=== PATIENT | female | born 1970 | race Hispanic/Latino ===

== ENCOUNTER 2023-10-07 21:20 | Emergency (ER) | payer SELFPAY ==
[2023-10-07] MEDS ORDERED: CEPHALEXIN 250 MG CAP ONE (22:06)
[2023-10-07] MEDS ORDERED: TDAP (DIPHTH,PERTUSS(ACELL),TET VAC) 0.5 ML VIAL IMVAC ONE (22:07)
--- NOTE | 2023-10-07 22:13 | ER ---
Nurse's Notes [facility] Name: Radha Flowers Age: 53 yrs Sex: Female : 1970 Arrival Date: 10/07/2023 Time: 21:20 Bed 14 Private MD: Diagnosis: Foot Laceration/ Open wound of foot Presentation: 10/06 21:31 Chief complaint: Patient states: Pt lacerated right 4th toe while walking on wooden tl4 porch approx 30 min ago. Bleeding controlled. Coronavirus screen: At this time, the client does not indicate any symptoms associated with coronavirus-19. Ebola Screen: No symptoms or risks identified at this time. Initial Sepsis Screen: Does the patient meet any 2 criteria? No. Patient's initial sepsis screen is negative. Does the patient have a suspected source of infection? No. Patient's initial sepsis screen is negative. Risk Assessment: Do you want to hurt yourself or someone else? Patient reports no desire to harm self or others. Onset of symptoms was October 07, 2023 at 21:00. 21:31 Method Of Arrival: Ambulatory tl4 21:31 Acuity: JEANNIE 4 tl4 Triage Assessment: 21:34 General: Appears in no apparent distress. Behavior is calm, cooperative. Pain: Denies tl4 pain. EENT: No signs and/or symptoms were reported regarding the EENT system. Neuro: Level of Consciousness is awake, alert, obeys commands, Oriented to person, place, time, situation, Moves all extremities. Full function Gait is steady. Cardiovascular: Capillary refill < 3 seconds Patient's skin is warm and dry. Respiratory: Airway is patent Respiratory effort is even, unlabored, Respiratory pattern is regular, symmetrical. GI: No signs and/or symptoms were reported involving the gastrointestinal system. : No signs and/or symptoms were reported regarding the genitourinary system. Derm: Wound noted right foot Wound is laceration. Musculoskeletal: No signs and/or symptoms reported regarding the musculoskeletal system. Injury Description: Laceration sustained to right foot was sustained 30-60 minutes ago. BURR BENCH HAND: 22:24 unknown al5 Historical: - Allergies: 21:33 No Known Allergies; tl4 - Home Meds: 21:33 None [Active]; tl4 - PMHx: 21:33 Diabetes mellitus; tl4 - PSHx: 21:33 section; tl4 - Immunization history:: Last tetanus immunization: not immunized. - Infectious Disease History:: Denies. - Social history:: Smoking status: Patient denies any tobacco usage or history of. Screenin:23 [facility] ED Fall Risk Assessment (Adult) History of falling in the last 3 months, al5 including since admission Yes- single mechanical fall (1 pt) Confusion or Disorientation No (0 pts) Intoxicated or Sedated No (0 pts) Impaired Gait No (0 pts) Mobility Assist Device Used No (0 pt) Altered Elimination No (0 pt) Score/Fall Risk Level 0 - 2 = Low Risk Oriented to surroundings, Maintained a safe environment, Hourly rounding (assess needs \T\ fall precautionary measures) done. Abuse screen: Denies threats or abuse. Denies injuries from another. Nutritional screening: No deficits noted. Tuberculosis screening: No symptoms or risk factors identified. Assessment: 22:24 Reassessment: Patient appears in no apparent distress at this time. No changes from al5 previously documented assessment. Patient and/or family updated on plan of care and expected duration. Pain level reassessed. Patient is alert, oriented x 3, equal unlabored respirations, skin warm/dry/pink. Vital Signs: 21:31 BP 169 / 79; Pulse 99; Resp 18; Temp 97.5(TE); Pulse Ox 98% on R/A; Weight 52.16 kg; tl4 Height 4 ft. 9 in. ; Pain 0/10; 21:31 Body Mass Index 24.89 (52.16 kg, 144.78 cm) tl4 21:31 Pain Scale: Adult tl4 ED Course: 21:24 Patient arrived in ED. ec2 21:24 Wei Espinal MD is Attending Physician. ec2 21:33 Triage completed. tl4 21:35 Arm band placed on left wrist. tl4 21:51 Cari Ulrich, LUIZA is Primary Nurse. al5 22:11 Foot Right 3 View XRAY In Process Unspecified. EDMS 22:23 Patient has correct armband on for positive identification. Bed in low position. Call al5 light in reach. Side rails up X 1. Provided Education on: wound care. 22:23 No provider procedures requiring assistance completed. Patient did not have IV access al5 during this emergency room visit. 22:38 Dressings: Kerlix X 1; right foot non-adherent dressing x 1 plantar aspect of right sa1 fourth toe. Wound care: to laceration was cleaned with with NS and Triple antibiotic ointment. Administered Medications: 22:19 Drug: Boostrix Tdap IM 0.5 ml IM once; as a single dose Route: IM; Site: right deltoid; al5 22:26 Follow up: Response: (VIS) Vaccine information sheet provided today. Questions and/or al5 concerns addressed. VIS edition date: Oct 03, 2020.; No adverse reaction 22:19 Drug: Cephalexin PO 500 mg PO once Route: PO; al5 22:26 Follow up: Response: No adverse reaction al5 Medication: 22:24 Vaccine Information Statement (VIS) provided today. Questions and/or concerns al5 addressed. VIS edition date: October 03, 2020. Outcome: 22:13 Discharge ordered by . ec2 22:27 Discharged to home ambulatory, with family, al5 22:27 Condition: good 22:27 Discharge instructions given to patient, family, Instructed on discharge instructions, follow up and referral plans. medication usage, Demonstrated understanding of instructions, follow-up care, medications, Prescriptions given X 1, 22:29 Patient left the ED. al5 Signatures: Dispatcher [employer] EDMS Wei Espinal MD MD ec2 Greg Colindres RN RN tl4 Cari Ulrich RN RN al5 [facility]
--- NOTE | 2023-10-07 22:13 | EDPHYS ---
Physician Documentation [facility] Name: Radha Flowers Age: 53 yrs Sex: Female : 1970 Arrival Date: 10/07/2023 Time: 21:20 Bed 14 Private MD: ED Physician Wei Espinal HPI: 10/06 21:39 This 53 yrs old Female presents to ER via Ambulatory with complaints of ec2 Laceration To Foot. 21:39 Patient arrives today after injuring herself while walking barefoot. States that she ec2 injured her fourth and fifth toes on the right foot. Unsure of tetanus status, sustained some bleeding which is now controlled.. BAR ASSISTANT: 22:24 unknown al5 Historical: - Allergies: 21:33 No Known Allergies; tl4 - Home Meds: 21:33 None [Active]; tl4 - PMHx: 21:33 Diabetes mellitus; tl4 - PSHx: 21:33 section; tl4 - Immunization history:: Last tetanus immunization: not immunized. - Infectious Disease History:: Denies. - Social history:: Smoking status: Patient denies any tobacco usage or history of. ROS: 21:39 Constitutional: as per hpi ec2 Exam: 21:39 Constitutional: GEN: NAD Head: atraumatic Eyes: EOMI Ears: External ears are ec2 normal. CV: regular rate LUNGS: no respiratory distress ABD: non-distended SKIN: Controlled bleeding between the fourth and fifth digit spaces of the right foot. No active bleeding MSK: no evidence of trauma NEURO: moves all extremities equally Vital Signs: 21:31 BP 169 / 79; Pulse 99; Resp 18; Temp 97.5(TE); Pulse Ox 98% on R/A; Weight 52.16 kg; tl4 Height 4 ft. 9 in. ; Pain 0/10; 21:31 Body Mass Index 24.89 (52.16 kg, 144.78 cm) tl4 21:31 Pain Scale: Adult tl4 MDM: 21:35 Patient medically screened. ec2 21:39 Data reviewed: vital signs. ED course: Patient arrives today for evaluation of a foot ec2 wound. Examination markable well-appearing nontoxic individual otherwise in no acute distress will obtain radiograph to evaluate for retained foreign body, will clean the wound. Patient with history of diabetes, will also empirically treat with Keflex given poor wound healing.. 22:12 ED course: Foot x-ray independently reviewed and interpreted by me, shows no bony ec2 fracture. Will discharge home, empirically started antibiotics given her history of diabetes and poor wound healing. Return precautions given.. 08 21:38 Order name: Foot Right 3 View XRAY ec2 10/06 21:38 Order name: Wound Care; Complete Time: 22:26 ec2 Administered Medications: 22:19 Drug: Boostrix Tdap IM 0.5 ml IM once; as a single dose Route: IM; Site: right deltoid; al5 22:26 Follow up: Response: (VIS) Vaccine information sheet provided today. Questions and/or al5 concerns addressed. VIS edition date: Oct 03, 2020.; No adverse reaction 22:19 Drug: Cephalexin PO 500 mg PO once Route: PO; al5 22:26 Follow up: Response: No adverse reaction al5 Disposition Summary: 10/07/23 22:13 Discharge Ordered Notes: Location: Home ec2 Condition: Stable ec2 Diagnosis - Foot Laceration/ Open wound of foot ec2 Followup: ec2 - With: Private Physician - When: - Reason: Re-evaluation by your physician Discharge Instructions: - Discharge Summary Sheet ec2 - Puncture Wound, [id number] ec2 Forms: - Medication Reconciliation Form ec2 - Antibiotic Education ec2 - Prescription Opioid Use ec2 - Patient Portal Instructions ec2 - Leadership Thank You Letter ec2 Prescriptions: - Cephalexin 500 mg Oral capsule - take 1 capsule ORAL route every 8 hours for 7 days; 21 capsule; Refills: 0, ec2 Product Selection Permitted Signatures: Dispatcher [employer] EDMS Wei Espinal MD MD ec2 Greg Colindres RN RN tl4 Cari Ulrich RN RN al5 Corrections: (The following items were deleted from the chart) 22:13 21:39 ED course: Patient arrives today for evaluation of a foot wound. Examination ec2 markable well-appearing nontoxic vigorous otherwise in no acute distress will obtain radiograph to evaluate for retained foreign body, will clean the wound. Patient with history of diabetes, will also empirically treat with Keflex given poor wound healing.. ec2
--- NOTE | 2023-10-07 22:22 | RAD REPORT ---
EXAM DESCRIPTION: RAD - Foot Right 3 View - 10/07/2023 10:09 pm CLINICAL HISTORY: foot injury COMPARISON: <Comparisons> FINDINGS: No acute fracture or dislocation. Small calcaneal spurs.
[2023-10-07 22:40] VITALS: BP 169/79; TEMP 97.5; O2SAT 98
== END 2023-10-07 22:29 | disposition home or self-care (01) ==
LOC: ER 21:20
DX: S91.311A Laceration without foreign body, right foot, initial encounter (principal)
CPT/HCPCS: 96372; 99284